=== PATIENT | female | born 1980 | race Caucasian/White ===

== ENCOUNTER 2016-07-29 09:54 | Day surgery (SDC) | payer BC ==
[~2016-07-29 09:54] MED LIST: ANALPRAM HC 2.530 GM TOP; BACLOFEN10 M1 PO; CALCIUM WITH V1 EAC2 PO; CLARITIN10 MG PO; COLACE100 M1 PO; COLACE100 MG PO; DHA100 M1 PO; HYDROCODON-ACE1 EAC7 PO; IBUPROFEN800 M1 PO; MIRALAX12 EA PO; MOTRIN800 MG PO; NORCO 5-325 TA1 EACH PO; NORCO 5/325 TAB1 TAB PO; PRENATAL1 EACH PO; SYNTHROID100 MCG PO; SYNTHROID112 MC1 PO; TRAMADOL HCL50 M2 PO
[2016-07-29] MEDS ORDERED: SYNTHROID112 MC1 PO (10:23)
[2016-07-29] MEDS ORDERED: COLACE100 M1 PO (10:23)
[2016-07-29] MEDS ORDERED: PRENATAL-U CAPS1 CAP PO (10:23)
[2016-07-29] MEDS ORDERED: VITAMIN B122500 MCG PO (10:24)
[2016-07-29] MEDS ORDERED: VITAMIN B-6100 M1 PO (10:25)
[2016-07-29] MEDS ORDERED: CALCIUM CARBON500 M2 PO (10:25)
[2016-07-29] MEDS ORDERED: TRAZODONE HCL100 M1 PO (10:26)
[2016-07-29] MEDS ORDERED: BACLOFEN10 M1 PO (10:27)
[2016-07-29 11:39] LABS: BASO % 1.1 % (0-2); BASO ABSOLUTE COUNT 0.1 tho/cmm (0.0-0.2); EOS % 3.7 % (0-7); EOSINOPHIL ABSOLUTE COUNT 0.2 tho/cmm (0.0-0.7); HCT-HEMATOCRIT 34.9 % (34.0-49.0); HGB-HEMOGLOBIN 11.7 gm/dl (12.0-15.5); IMMATURE GRANULOCYTES ABSOLUTE 0.01 tho/cmm (0-0.03); IMMATURE GRANULOCYTES PERCENT 0.2 % (0-0.3); LYMPH ABSOLUTE COUNT 1.6 tho/cmm (0.8-4.5); MCH (MEAN CORPUSCULAR HGB) 28.3 pg (28.0-32.0); MCHC MEAN CORPUSCULAR HGB CONC 33.5 % (32.0-36.0); MCV (MEAN CELL VOLUME) 84.3 fl (82.0-96.0); MEAN PLATELET VOLUME 10.1 cmc (9.4-12.4); MONO % 5.5 % (0-12); MONOCYTE ABSOLUTE COUNT 0.3 tho/cmm (0.0-1.2); NEUTROPHIL ABSOLUTE COUNT 2.4 tho/cmm (1.6-8.0); NEUTROPHIL-AUTOMATED 2.4 tho/cmm (1.6-8.0); NEUTROPHILS % 53.5 % (40-80); PLATELET COUNT 216 tho/cmm (150-450); RED BLOOD COUNT 4.14 mil/cmm (4.00-5.20); RED CELL DISTRIBUTION WIDTH 14.2 % (12.4-16.4); WHITE BLOOD COUNT 4.6 tho/cmm (4.0-10.0)
== END 2016-07-29 14:15 ==
LOC: WSU 09:54 → SHSB 09:58 → ORW 11:27 → PACU 12:19 → SHSB 13:15
PROVIDERS: Anesthesiology
PROC: 10D17ZZ Extraction of Products of Conception, Retained, Via Natural or Artificial Opening (ICD-10-PCS; principal; 2016-07-29)
DX: O03.4 Incomplete spontaneous abortion without complication (principal); E03.9 Hypothyroidism, unspecified; Z79.899 Other long term (current) drug therapy; Z88.2 Allergy status to sulfonamides; Z87.891 Personal history of nicotine dependence; Z98.1 Arthrodesis status; Z98.890 Other specified postprocedural states
CPT/HCPCS: J1170; J2210